=== PATIENT | male | born 1970 | race Caucasian/White ===

== ENCOUNTER 2018-08-13 18:23 | Inpatient (IN) | payer OTHER ==
[~2018-08-13] VITALS: Ht 185.4 cm; Wt 89.4 kg
[2018-08-13] MEDS ORDERED: ONDANSETRON PF 4 MG/2 ML VIAL. ONE (18:45)
[2018-08-13] MEDS ORDERED: IV RINGERS SOLUTION,LACTATED 1,000 ML IV SCH (18:49)
--- NOTE | 2018-08-13 18:54 | ED.ADGEN ---
Past History Past Medical History: Anxiety Past Surgical History: No Surgical History Alcohol Use: None Drug Use: None Adult General Chief Complaint Chief Complaint " I just not feeling well... I am under a lot of stress... 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 Pt. diaphoretic and nauseated. Pt. patient denies any trauma. Has had recent travel. Currently under increased job stressors. Patient denies prior history of cardiac disorders. However it does start in his family at age 50. Patient denies any specific ill exposures and has not been overseas recently. Patient up-to-date with vaccinations. Normally follows at [facility]. No history of cardiac disorders. Review of Systems Review of Systems Constitutional: Denies fever or chills [] Eyes: Denies change in visual acuity, redness, or eye pain [] HENT: Denies nasal congestion or sore throat [] Respiratory: Denies cough or shortness of breath [] Cardiovascular: No additional information not addressed in HPI [] GI: Denies abdominal pain, nausea, vomiting, bloody stools or diarrhea [] : Denies dysuria or hematuria [] Musculoskeletal: Denies back pain or joint pain [] Integument: Denies rash or skin lesions [] Neurologic: Denies headache, focal weakness or sensory changes [] Endocrine: Denies polyuria or polydipsia [] All other systems were reviewed and found to be within normal limits, except as documented in this note. Family History Family History Cardiac disorders started in range of 50 yrs. Current Medications Current Medications Current Medications Medications (Trade) Dose Ordered Sig/[facility] Start Time Stop Time Status Last Admin Dose Admin Aspirin (Children'S Aspirin) 324 mg 1X ONCE 08/13/18 19:00 08/13/18 19:01 DC 08/13/18 19:18 324 MG Enoxaparin Sodium (Lovenox 100mg Syringe) 90 mg 1X ONCE 08/13/18 20:00 08/13/18 20:03 DC 08/13/18 20:32 90 MG Iohexol (Omnipaque 300 Mg/ml) 75 ml 1X ONCE 08/13/18 20:15 08/13/18 20:16 DC 08/13/18 20:10 75 ML Lactated Ringer's 1,000 ml @ 1,000 mls/hr Q1H 08/13/18 18:49 08/13/18 19:48 DC 08/13/18 19:18 1,000 MLS/HR Lorazepam (Ativan) 1 mg 1X ONCE 08/13/18 19:00 08/13/18 19:01 DC 08/13/18 19:18 1 MG Magnesium Hydroxide (Milk Of Magnesia) 2,400 mg 1X ONCE 08/13/18 19:45 08/13/18 19:46 DC 08/13/18 20:32 2,400 MG Ondansetron HCl (Zofran) 8 mg 1X ONCE 08/13/18 19:15 08/13/18 19:16 DC 08/13/18 19:17 8 MG Potassium Chloride (KCl Oral Soln) 40 meq 1X ONCE 08/13/18 19:45 08/13/18 19:46 DC 08/13/18 20:31 40 MEQ See nursing for home meds Allergies Allergies Allergies Coded Allergies Type Severity Reaction Last Updated Verified No Known Drug Allergies 08/13/18 No Physical Exam Physical Exam Constitutional: Well developed, well nourished, in acute distress, non-toxic appearance. [] HENT: Normocephalic, atraumatic, bilateral external ears normal, oropharynx moist, no oral exudates, nose normal. [] Eyes: PERRLA, EOMI, conjunctiva normal, no discharge. [] Neck: Normal range of motion, no tenderness, supple, no stridor. [] Cardiovascular: Bradycardia Heart rate, regular rhythm, no murmur [] Lungs & Thorax: Bilateral breath sounds equal apex on auscultation [] Abdomen: Bowel sounds normal, soft, no tenderness, no masses, no pulsatile masses. [] Skin: Warm, very diaphoretic, no erythema, no rash. [] Back: No tenderness, no CVA tenderness. [] Extremities: No tenderness, no cyanosis, no clubbing, ROM intact, no edema. [No cording noted Neurologic: Alert and oriented X 3, normal motor function, normal sensory function, no focal deficits noted. [] Psychologic: Affect anxious, judgement normal, mood normal. [] Current Patient Data Vital Signs Vital Signs Date Time Temp Pulse Resp B/P (MAP) Pulse Ox O2 Delivery O2 Flow Rate FiO2 10/29/18 21:49 48 16 134/87 (103) 98 Room Air 08/13/18 18:37 98.5 Lab Results Laboratory Tests Test 08/13/18 18:36 08/13/18 20:39 White Blood Count 10.1 x10^3/uL (4.0-11.0) Red Blood Count 5.49 x10^6/uL (4.30-5.70) Hemoglobin 16.1 g/dL (13.0-17.5) Hematocrit 46.5 % (39.0-53.0) Mean Corpuscular Volume 85 fL (79-100) Mean Corpuscular Hemoglobin 29 pg (25-35) Mean Corpuscular Hemoglobin Concent 35 g/dL (31-37) Red Cell Distribution Width 13.9 % (11.5-14.5) Platelet Count 231 x10^3/uL (140-400) Neutrophils (%) (Auto) 41 % (31-73) Lymphocytes (%) (Auto) 48 % (24-48) Monocytes (%) (Auto) 8 % (0-9) Eosinophils (%) (Auto) 2 % (0-3) Basophils (%) (Auto) 1 % (0-3) Neutrophils # (Auto) 4.1 x10^3uL (1.8-7.7) Lymphocytes # (Auto) 4.8 x10^3/uL (1.0-4.8) Monocytes # (Auto) 0.8 x10^3/uL (0.0-1.1) Eosinophils # (Auto) 0.2 x10^3/uL (0.0-0.7) Basophils # (Auto) 0.1 x10^3/uL (0.0-0.2) Prothrombin Time 9.8 SEC (9.4-11.4) Prothrombin Time INR 1.0 (0.9-1.1) PTT 21 SEC (23-33) L D-Dimer (Martha) 0.61 mg/L (0.00-0.50) H Sodium Level 141 mmol/L (136-145) Potassium Level 3.0 mmol/L (3.5-5.1) L Chloride Level 101 mmol/L (98-107) Carbon Dioxide Level 26 mmol/L (21-32) Anion Gap 14 (6-14) Blood Urea Nitrogen 16 mg/dL (8-26) Creatinine 1.4 mg/dL (0.7-1.3) H Estimated GFR (Cockcroft-Gault) 53.9 Glucose Level 107 mg/dL (70-99) H Calcium Level 9.0 mg/dL (8.5-10.1) Magnesium Level 2.0 mg/dL (1.8-2.4) Total Bilirubin 0.5 mg/dL (0.2-1.0) Direct Bilirubin 0.1 mg/dL (0.0-0.2) Aspartate Amino Transferase (AST) 42 U/L (15-37) H Alanine Aminotransferase (ALT) 74 U/L (16-63) H Alkaline Phosphatase 109 U/L (46-116) Creatine Kinase 403 U/L (39-308) H Troponin I Quantitative < 0.017 ng/mL (0-0.055) FK-Yti-B-Type Natriuretic Peptide 43 pg/mL (0-124) Total Protein 7.7 g/dL (6.4-8.2) Albumin 4.4 g/dL (3.4-5.0) Lipase 173 U/L (73-393) Urine Collection Type Unknown Urine Color Yellow Urine Clarity Clear Urine pH 6.5 Urine Specific [place] 1.015 Urine Protein Neg (NEG-TRACE) Urine Glucose (UA) Neg mg/dL (NEG) Urine Ketones (Stick) Neg mg/dL (NEG) Urine Blood Neg (NEG) Urine Nitrite Neg (NEG) Urine Bilirubin Neg (NEG) Urine Urobilinogen Dipstick 0.2 mg/dL (0.2 mg/dL) Urine Leukocyte Esterase Neg (NEG) Urine RBC 0 /HPF (0-2) Urine WBC 0 /HPF (0-4) Urine Squamous Epithelial Cells Occ /LPF Urine Bacteria 0 /HPF (0-FEW) Urine Opiates Screen Neg (NEG) Urine Methadone Screen Neg (NEG) Urine Barbiturates Neg (NEG) Urine Phencyclidine Screen Neg (NEG) Urine Amphetamine/Methamphetamine Neg (NEG) Urine Benzodiazepines Screen Neg (NEG) Urine Cocaine Screen Neg (NEG) Urine Cannabinoids Screen Neg (NEG) Urine Ethyl Alcohol Neg (NEG) EKG EKG My interpretation EKG shows a sinus at a rate of 66. No findings acute STEMI of contralateral changes.[] Radiology/Procedures Radiology/Procedures I interpretation chest x-ray shows no acute cardiopulmonary findings. CT of chest shows no obvious pulmonary embolism or acute pulmonary changes. See formal report when available.[] Course & Med Decision Making Course & Med Decision Making Pertinent Labs and Imaging studies reviewed. (See chart for details) Discussed options of treatment with patient. Has elected to stay for further observation and serial enzymes. Will admit to Dr. Garner with cardiology consult. [] Final Impression Final Impression 1. Chest pain 2. Near-syncope 3. Hypokalemia. 3.0 4. Elevated creatinine 1.4 5. Mild elevation in d-dimer= 0.61 6. Elevated AST/ALT 42/74 Dragon Disclaimer Dragon Disclaimer This electronic medical record was generated, in whole or in part, using a voice recognition dictation system. CHARLEE SWANSON MD Aug 13, 2018 18:54
[2018-08-13] MEDS ORDERED: ASPIRIN 81 MG TAB.CHEW PO ONE (19:00)
[2018-08-13] MEDS ORDERED: LORazepam 1 MG TABLET PO ONE (19:00)
[2018-08-13 19:05] LABS: BASO # 0.1 x10^3/uL (0.0-0.2); BASO % 1 % (0-3); EOS # 0.2 x10^3/uL (0.0-0.7); EOS % 2 % (0-3); HEMATOCRIT 46.5 % (39.0-53.0); HEMOGLOBIN 16.1 g/dL (13.0-17.5); LYMPH # 4.8 x10^3/uL (1.0-4.8); LYMPH % 48 % (24-48); MEAN CORPUSCULAR HEMOGLOBIN 29 pg (25-35); MEAN CORPUSCULAR HGB CONC 35 g/dL (31-37); MEAN CORPUSCULAR VOLUME 85 fL (79-100); MONO # 0.8 x10^3/uL (0.0-1.1); MONO % 8 % (0-9); NEUT # 4.1 x10^3uL (1.8-7.7); NEUT % 41 % (31-73); PLATELET COUNT 231 x10^3/uL (140-400); RED BLOOD COUNT 5.49 x10^6/uL (4.30-5.70); RED CELL DISTRIBUTION WIDTH 13.9 % (11.5-14.5); WHITE BLOOD COUNT 10.1 x10^3/uL (4.0-11.0)
[2018-08-13] MEDS ORDERED: ONDANSETRON PF 4 MG/2 ML VIAL. IV ONE (19:15)
[2018-08-13 19:20] LABS: ALBUMIN 4.4 g/dL (3.4-5.0); CREATININE 1.4 mg/dL (0.7-1.3); DIRECT BILIRUBIN 0.1 mg/dL (0.0-0.2); GFR 53.9; TOTAL BILIRUBIN 0.5 mg/dL (0.2-1.0); TOTAL PROTEIN 7.7 g/dL (6.4-8.2)
[2018-08-13] MEDS ORDERED: POTASSIUM CHLORIDE 20 MEQ/15 ML ORAL LIQUID. PO ONE (19:45)
[2018-08-13] MEDS ORDERED: MAGNESIUM HYDROXIDE 2,400 MG/30 ML ORAL.SUSP. PO ONE (19:45)
[2018-08-13] MEDS ORDERED: ENOXAPARIN ** NOTE DOSE ** SYRINGE SQ ONE (20:00)
[2018-08-13] MEDS ORDERED: IOHEXOL 300 MG/ML 75 ML VIAL. IV ONE (20:15)
--- NOTE | 2018-08-13 20:43 | RAD ---
Examination: CT ANGIOGRAPHY CHEST History: Omni 300 60cc: PE protocol: Chest pain, dizziness, chills, elevated d-dimer Comparison/Correlation: None Findings: Axial images of the chest were obtained following 60 cc Omnipaque 300 IV. Sagittal and coronal reformatted images were provided. Pulmonary arterial vasculature is normal with no thromboembolic disease. No enlarged thoracic lymph nodes. No pleural or pericardial effusion. No infiltrate. No suspicious pulmonary nodule or mass. Few nonspecific low-attenuation lesions involving the lung garcia noted. Partially visualized upper abdomen is unremarkable. Thoracic aorta is not opacified for arteriographic assessment on this exam. Morphology is grossly unremarkable. Impression: No pulmonary arterial thromboembolic disease. Electronically signed by: Ke Leonardo MD (08/13/2018 8:40 PM) [facility]
[2018-08-13 21:00] LABS: BACTERIA,URINE 0 /HPF (0-FEW); BILIRUBIN,URINE NEG (NEG); CLARITY,URINE CLEAR; COLOR,URINE YELLOW; GLUCOSE,URINE NEG (NEG); NITRITE,URINE NEG (NEG); RBC,URINE 0 /HPF (0-2); SQUAMOUS EPITHELIAL CELL,UR OCC /LPF; UROBILINOGEN,URINE 0.2 mg/dL (0.2 mg/dL); WBC,URINE 0 /HPF (0-4)
[2018-08-13 21:11] LABS: BARBITURATES NEG (NEG); BENZODIAZEPINES NEG (NEG); CANNABINOIDS NEG (NEG); COCAINE NEG (NEG); METHADONE NEG (NEG); OPIATES NEG (NEG); PHENCYCLIDINE NEG (NEG)
[2018-08-13 21:14] LABS: AMPHETAMINE/METHAMPHETAMINE NEG (NEG)
[2018-08-13] MEDS ORDERED: ONDANSETRON PF 4 MG/2 ML VIAL. IV PRN (22:15)
[2018-08-13] MEDS: IV RINGERS SOLUTION,LACTATED 1,000 ML IV SCH (22:30)
--- NOTE | 2018-08-13 23:35 | RAD ---
Examination: CHEST PA LATERAL History: Chest pain, dizziness Comparison/Correlation: None Findings: PA and lateral views of the chest were obtained. Heart size and pulmonary vasculature are normal. No infiltrate or pleural effusion. No pneumothorax. Bony structures are unremarkable for the patient's age. Impression: No active disease. Electronically signed by: Ke Leonardo MD (08/13/2018 11:32 PM) [facility]
[2018-08-13 23:42] VITALS: BP 117/78
[2018-08-14 03:00] VITALS: BP 127/73
[2018-08-14] MEDS: IV RINGERS SOLUTION,LACTATED 1,000 ML IV SCH ×2 (04:30→10:45)
[2018-08-14 06:19] LABS: BASO # 0.1 x10^3/uL (0.0-0.2); BASO % 1 % (0-3); EOS # 0.1 x10^3/uL (0.0-0.7); EOS % 1 % (0-3); HEMATOCRIT 42.4 % (39.0-53.0); HEMOGLOBIN 14.6 g/dL (13.0-17.5); LYMPH # 2.1 x10^3/uL (1.0-4.8); LYMPH % 31 % (24-48); MEAN CORPUSCULAR HEMOGLOBIN 29 pg (25-35); MEAN CORPUSCULAR HGB CONC 34 g/dL (31-37); MEAN CORPUSCULAR VOLUME 85 fL (79-100); MONO # 0.6 x10^3/uL (0.0-1.1); MONO % 8 % (0-9); NEUT % 59 % (31-73); PLATELET COUNT 190 x10^3/uL (140-400); RED BLOOD COUNT 4.98 x10^6/uL (4.30-5.70); RED CELL DISTRIBUTION WIDTH 13.9 % (11.5-14.5); WHITE BLOOD COUNT 6.8 x10^3/uL (4.0-11.0)
[2018-08-14 06:31] LABS: CALCIUM 8.8 mg/dL (8.5-10.1); CREATININE 1.3 mg/dL (0.7-1.3); GFR 58.7; POTASSIUM 3.9 mmol/L (3.5-5.1)
--- NOTE | 2018-08-14 08:35 | PDOC2 ---
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 He reports he had just gotten home and was standing talking with about upcoming TDY. He says it had been about 15 minutes since he walked in the door and he had sudden onset of diaphoresis and lightheaded. He states he went down to floor but no loss of consciousness. He then developed nausea vomiting. He reports symptoms that continued about 30 min and became worse every time tried to stand so he came to the ED. He was noted to be mildly dehydrated and fluids were given. He reports prior lightheadedness on standing occasionally but only to a minimal degree. He denies chest discomfort, palpitations, prior syncope. He denies recent illness , fever or chills. He denies change in diet or fluid intake but does state that he thinks he is dehydrated off and on. He denies cardiac symptoms except as above, denies congestive symptoms. He regularly does PT for the and runs 3 miles several times weekly without issues. He does report that he has been having chronic fatigue and memory issues, or difficulty concentrating recently and had labs by his PCP, as well as a sleep study that was reportedly normal. Past Medical History He suffers from anxiety for which he takes Lexapro, otherwise he has no significant medical history Past Surgical History No pertinent history Family History Father and all uncles with history of premature coronary disease and MIs. Social History non smoker, no significant ETOH, no illicit drugs. Active duty [employer]. Due to TDY tomorrow to [facility]. Current Medications Current Medications Ondansetron HCl (Zofran) 4 mg STK-MED ONCE .ROUTE ; Start 08/13/18 at 18:45; Stop 08/13/18 at 18:46; Status DC Aspirin (Children'S Aspirin) 324 mg 1X ONCE PO Last administered on at 19:18; Start 08/13/18 at 19:00; Stop 08/13/18 at 19:01; Status DC Lactated Ringer's 1,000 ml @ 1,000 mls/hr Q1H IV Last administered on at 19:18; Start 08/13/18 at 18:49; Stop 08/13/18 at 19:48; Status DC Lorazepam (Ativan) 1 mg 1X ONCE PO Last administered on 08/13/18at 19:18; Start 08/13/18 at 19:00; Stop 08/13/18 at 19:01; Status DC Ondansetron HCl (Zofran) 8 mg 1X ONCE IV Last administered on 08/13/18at 19:17 ; Start 08/13/18 at 19:15; Stop 08/13/18 at 19:16; Status DC Potassium Chloride (KCl Oral Soln) 40 meq 1X ONCE PO Last administered on at 20:31; Start 08/13/18 at 19:45; Stop 08/13/18 at 19:46; Status DC Magnesium Hydroxide (Milk Of Magnesia) 2,400 mg 1X ONCE PO Last administered on 08/13/18at 20:32; Start 08/13/18 at 19:45; Stop 08/13/18 at 19:46; Status DC Enoxaparin Sodium (Lovenox 100mg Syringe) 90 mg 1X ONCE SQ Last administered on 08/13/18at 20:32; Start 08/13/18 at 20:00; Stop 08/13/18 at 20:03; Status DC Iohexol (Omnipaque 300 Mg/ml) 75 ml 1X ONCE IV Last administered on at 20:10; Start 08/13/18 at 20:15; Stop 08/13/18 at 20:16; Status DC Ondansetron HCl (Zofran) 4 mg PRN Q4HRS PRN IV NAUSEA/VOMITING; Start at 22:15; Stop 08/14/18 at 22:14 Enoxaparin Sodium (Lovenox 100mg Syringe) 90 mg BID SQ ; Start 08/14/18 at 09: 00 Aspirin (Children'S Aspirin) 81 mg DAILY PO ; Start 08/14/18 at 09:00 Lactated Ringer's 1,000 ml @ 160 mls/hr Q6H15M IV Last administered on at 22:30; Start 08/13/18 at 22:15 Potassium Chloride (KCl Oral Soln) 40 meq DAILY PO ; Start 08/14/18 at 09:00 Allergies: Coded Allergies: No Known Drug Allergies (Unverified , 08/13/18) Review of System as scheduled General: Alert, Oriented X3, Cooperative, No acute distress HEENT: Atraumatic, EOMI, Mucous membr. moist/pink, Other (no carotid bruits, JVD or HJR) Lungs: Clear to auscultation, Normal air movement Heart: Regular rate, Normal S1, Normal S2, No murmurs, Other (no gallops, clicks or rubs) Abdomen: Normal bowel sounds, Soft, No tenderness Extremities: No clubbing, No cyanosis, No edema, Normal pulses Neuro: Normal speech, Strength at 5/5 X4 ext, Cranial nerves 3-12 NL Psych/Mental Status: Mental status NL, Mood NL VITALS Vital Signs Date Time Temp Pulse Resp B/P (MAP) Pulse Ox O2 Delivery O2 Flow Rate FiO2 08/14/18 03:00 98.1 51 16 127/73 (91) 95 08/13/18 23:42 Room Air Labs Laboratory Tests Test 08/13/18 18:36 08/13/18 20:39 08/14/18 05:42 White Blood Count 10.1 x10^3/uL (4.0-11.0) 6.8 x10^3/uL (4.0-11.0) Red Blood Count 5.49 x10^6/uL (4.30-5.70) 4.98 x10^6/uL (4.30-5.70) Hemoglobin 16.1 g/dL (13.0-17.5) 14.6 g/dL (13.0-17.5) Hematocrit 46.5 % (39.0-53.0) 42.4 % (39.0-53.0) Mean Corpuscular Volume 85 fL (79-100) 85 fL (79-100) Mean Corpuscular Hemoglobin 29 pg (25-35) 29 pg (25-35) Mean Corpuscular Hemoglobin Concent 35 g/dL (31-37) 34 g/dL (31-37) Red Cell Distribution Width 13.9 % (11.5-14.5) 13.9 % (11.5-14.5) Platelet Count 231 x10^3/uL (140-400) 190 x10^3/uL (140-400) Neutrophils (%) (Auto) 41 % (31-73) 59 % (31-73) Lymphocytes (%) (Auto) 48 % (24-48) 31 % (24-48) Monocytes (%) (Auto) 8 % (0-9) 8 % (0-9) Eosinophils (%) (Auto) 2 % (0-3) 1 % (0-3) Basophils (%) (Auto) 1 % (0-3) 1 % (0-3) Neutrophils # (Auto) 4.1 x10^3uL (1.8-7.7) 4.0 x10^3uL (1.8-7.7) Lymphocytes # (Auto) 4.8 x10^3/uL (1.0-4.8) 2.1 x10^3/uL (1.0-4.8) Monocytes # (Auto) 0.8 x10^3/uL (0.0-1.1) 0.6 x10^3/uL (0.0-1.1) Eosinophils # (Auto) 0.2 x10^3/uL (0.0-0.7) 0.1 x10^3/uL (0.0-0.7) Basophils # (Auto) 0.1 x10^3/uL (0.0-0.2) 0.1 x10^3/uL (0.0-0.2) Prothrombin Time 9.8 SEC (9.4-11.4) Prothromb Time International Ratio 1.0 (0.9-1.1) Activated Partial Thromboplast Time 21 SEC (23-33) D-Dimer (Martha) 0.61 mg/L (0.00-0.50) Sodium Level 141 mmol/L (136-145) 140 mmol/L (136-145) Potassium Level 3.0 mmol/L (3.5-5.1) 3.9 mmol/L (3.5-5.1) Chloride Level 101 mmol/L (98-107) 103 mmol/L (98-107) Carbon Dioxide Level 26 mmol/L (21-32) 29 mmol/L (21-32) Anion Gap 14 (6-14) 8 (6-14) Blood Urea Nitrogen 16 mg/dL (8-26) 13 mg/dL (8-26) Creatinine 1.4 mg/dL (0.7-1.3) 1.3 mg/dL (0.7-1.3) Estimated GFR (Cockcroft-Gault) 53.9 58.7 Glucose Level 107 mg/dL (70-99) 91 mg/dL (70-99) Calcium Level 9.0 mg/dL (8.5-10.1) 8.8 mg/dL (8.5-10.1) Magnesium Level 2.0 mg/dL (1.8-2.4) Total Bilirubin 0.5 mg/dL (0.2-1.0) Direct Bilirubin 0.1 mg/dL (0.0-0.2) Aspartate Amino Transf (AST/SGOT) 42 U/L (15-37) Alanine Aminotransferase (ALT/SGPT) 74 U/L (16-63) Alkaline Phosphatase 109 U/L (46-116) Creatine Kinase 403 U/L (39-308) Troponin I Quantitative < 0.017 ng/mL (0-0.055) WG-Tvs-G-Type Natriuretic Peptide 43 pg/mL (0-124) Total Protein 7.7 g/dL (6.4-8.2) Albumin 4.4 g/dL (3.4-5.0) Lipase 173 U/L (73-393) Urine Collection Type Unknown Urine Color Yellow Urine Clarity Clear Urine pH 6.5 Urine Specific [place] 1.015 Urine Protein Neg (NEG-TRACE) Urine Glucose (UA) Neg mg/dL (NEG) Urine Ketones (Stick) Neg mg/dL (NEG) Urine Blood Neg (NEG) Urine Nitrite Neg (NEG) Urine Bilirubin Neg (NEG) Urine Urobilinogen Dipstick 0.2 mg/dL (0.2 mg/dL) Urine Leukocyte Esterase Neg (NEG) Urine RBC 0 /HPF (0-2) Urine WBC 0 /HPF (0-4) Urine Squamous Epithelial Cells Occ /LPF Urine Bacteria 0 /HPF (0-FEW) Urine Opiates Screen Neg (NEG) Urine Methadone Screen Neg (NEG) Urine Barbiturates Neg (NEG) Urine Phencyclidine Screen Neg (NEG) Urine Amphetamine/Methamphetamine Neg (NEG) Urine Benzodiazepines Screen Neg (NEG) Urine Cocaine Screen Neg (NEG) Urine Cannabinoids Screen Neg (NEG) Urine Ethyl Alcohol Neg (NEG) Images EKG - sinus becca without acute abn CXR - no acute abn CTA - no PE Assessment/Plan 1. near syncope 2. fatigue 3. hypokalemia 4. acute renal insufficiency secondary to mild dehydration 5. mild hepatic insufficiency Suspect near syncope secondary to orthostatic hypotension and mild dehydration, however with additional complaints of recent chronic fatigue, active duty status and family history of premature coronary artery disease we will check echo for LV function and structure. Suggest outpatient event monitoring and stress testing if echo ok. CRI is resolved after fluids. Request recent labs ( lipids, thyroid, vitamin d ect) from PCP. ADELFO DIEGO MD 08/14/18 2306: CONSULT Assessment/Plan Pt. seen and examined. Agree with above SALES ORDER COORDINATOR note with following comments: Vasovagal syncope. Normal exam, EKG/echo. No further testing needed. ok to DC from CV standpoint. pls call with questions. COLBY SALDIVAR APRN Aug 14, 2018 08:35 ADELFO DIEGO MD Aug 14, 2018 23:06
[2018-08-14] MEDS ORDERED: ASPIRIN 81 MG TAB.CHEW PO SCH (09:00)
[2018-08-14] MEDS ORDERED: POTASSIUM CHLORIDE 20 MEQ/15 ML ORAL LIQUID. PO SCH (09:00)
[2018-08-14] MEDS ORDERED: ENOXAPARIN ** NOTE DOSE ** SYRINGE SQ SCH (09:00)
--- NOTE | 2018-08-14 09:46 | RAD ---
Bilateral lower extremity venous duplex study 08/14/2018 7:25 AM Clinical History: Chest pain. Bilateral lower extremity cramping. Comparison: None available Technique: Using a combination of real time ultrasound imaging and color-flow and pulse Doppler imaging techniques along with graded compression and augmentation, duplex evaluation of the deep venous system of the both lower extremities was performed. Multiple images were obtained. Findings: There is no sonographic evidence of deep venous thrombosis involving the visualized deep venous structures of either lower extremity. Impression: No evidence of deep venous thrombosis involving either lower extremity Electronically signed by: Mitchel Ma MD (08/14/2018 9:42 AM) [id number]
[2018-08-14 11:24] VITALS: BP 110/67
[2018-08-14 14:23] LABS: THYROID STIM HORMONE (TSH) 1.615 uIU/mL (0.358-3.740)
--- NOTE | 2018-08-14 15:03 | CARD ---
MR#: [id number] Date of Study: 08/14/2018 Ordering Physician: COLBY SALDIVAR, Referring Physician: BRAN ZEE Tech: Ambreen Edwards WILLIE APPROVED REPORT EXAM: Two-dimensional and M-mode echocardiogram with Doppler and color Doppler. Other Information Quality : GoodHR: 50bpm Rhythm : Bradycardia INDICATION Chest Pain 2D DIMENSIONS RVDd2.7 (2.9-3.5cm)Left Atrium(2D)3.1 (1.6-4.0cm) IVSd0.9 (0.7-1.1cm)Aortic Root(2D)2.8 (2.0-3.7cm) LVDd5.0 (3.9-5.9cm)LVOT Diameter2.0 (1.8-2.4cm) PWd0.9 (0.7-1.1cm)LVDs2.6 (2.5-4.0cm) FS (%) 42.0 %LVEF(%)73.0 (>50%) Aortic Valve AoV Peak [place].1.5cm/sAoV VTI32.0cm AO Peak GR.9.0mmHgLVOT Peak [place].1.2cm/s LVOT VTI 28.00cmAO Mean GR.6mmHg YASMIN (VMAX)2.14vr3LGU (VTI)2.60cm2 Mitral Valve MV E Velocity1.1cm/sMV E Peak Gr.5mmHg MV DECEL [id number] A Velocity0.6cm/s MV E Mean Gr.13mmHgE/A Ratio1.8 MV A [id number] TDI Lateral E' P. V19.00cm/sMedial E' P. V16.00cm/s E/Lateral E'0.1E/Medial E'0.1 Pulmonary Valve PV Peak Velocity1.4cm/sPV Peak Grad.8mmHg Tricuspid Valve TR P. [id number]/sRAP [id number] TR Peak Gr.[id number] LEFT VENTRICLE The left ventricle is normal size. There is normal left ventricular wall thickness. The left ventricu lar systolic function is normal and the ejection fraction is within normal range. The Ejection Fracti on is 60-65%. There is normal LV segmental wall motion. The left ventricular diastolic function and f illing is normal for age. RIGHT VENTRICLE The right ventricle is normal size. There is normal right ventricular wall thickness. The right ventr icular systolic function is normal. ATRIA The left atrium size is normal. The right atrium size is normal. The interatrial septum is intact wit h no evidence for an atrial septal defect or patent foramen ovale as noted on 2-D or Doppler imaging. AORTIC VALVE The aortic valve is normal in structure and function. The aortic valve is trileaflet. Doppler and Col or Flow revealed no significant aortic regurgitation. There is no significant aortic valvular stenosi s. MITRAL VALVE The mitral valve is normal in structure and function. There is no evidence of mitral valve prolapse. There is no mitral valve stenosis. Doppler and Color Flow revealed no mitral valve regurgitation note d. TRICUSPID VALVE The tricuspid valve is normal in structure and function. Doppler and Color Flow revealed trace tricus pid regurgitation. The PA pressure was estimated at 29 mmHg. There is no tricuspid valve prolapse or vegetation. There is no tricuspid valve stenosis. PULMONIC VALVE Not well visualized. Doppler and Color Flow revealed no pulmonic valvular regurgitation. There is no pulmonic valvular stenosis. GREAT VESSELS The aortic root is normal in size. The ascending aorta is normal in size. The IVC is normal in size a nd collapses >50% with inspiration. PERICARDIAL EFFUSION There is no evidence of significant pericardial effusion. Critical Notification Critical Value: No <Conclusion> The left ventricular systolic function is normal and the ejection fraction is within normal range. Th e Ejection Fraction is 60-65%. There is normal LV segmental wall motion. Signed by : Edmundo Miranda, Electronically Approved : 08/14/2018 15:03:00
--- NOTE | 2018-08-14 15:05 | EKG ---
[address] [address] Test Date: 2018-08-13 Test Time: 18:27:03 Pat Name: LA MARTINEZ Department: Room: 121 A Gender: M Data Warehousing Specialist: : [id number] Requested By: CHARLEE SWANSON Order Number: [id number] Reading MD: Edmundo Miranda MD Measurements Intervals [place] Rate: 66 P: 37 SC: 140 QRS: 36 QRSD: 96 T: 31 QT: 418 QTc: 440 Interpretive Statements SINUS RHYTHM Electronically Signed On 08-16-2018 11:50:59 CDT by Edmundo Miranda MD
--- NOTE | 2018-08-14 19:04 | HP ---
ADMIT DATE: 08/13/2018 HISTORY OF PRESENT ILLNESS: The patient is a 48-year-old male patient, who came to the Emergency Room with a complaint of being lightheaded, diaphoretic down to the floor, then nausea and vomiting continued about 30 minutes and worse every time he tried to stand. He has history of lightheadedness on standing, but no illness, fever or chills. No cardiac symptoms except as above. He runs 3 miles several times a week. Did complain of chronic fatigue and memory issues, recently had labs as well as sleep study that was reportedly normal. However, his past medical history is significant only for anxiety. Past surgical history is left inguinal hernia repair. He was investigated extensively in the Emergency Room and admitted with near syncope, fatigue, he was found to be hypokalemic, and has acute kidney injury with a BUN of 16, creatinine 1.4, and also mild hepatic insufficiency. He was admitted and his first set of cardiac enzymes was normal. He was admitted for further evaluation and to consult the cardiology team. PAST MEDICAL HISTORY: Significant for anxiety disorder. PAST SURGICAL HISTORY: Significant for left inguinal hernia repair. ALLERGIES: He has no known drug allergies. MEDICATIONS: He is currently on Lexapro. He is on Lexapro 10 mg once a day. FAMILY HISTORY: Significant for one younger brother who is healthy. Father at age of 78 and mother at age of 62 because of COPD and complication of surgery. SOCIAL HISTORY: He is , has 3 children. He never smoked, drinks alcohol occasionally. Does not use any drugs. He is retiring from the [employer]. REVIEW OF SYSTEMS: As per history of present illness. PHYSICAL EXAMINATION: GENERAL: On examining him, he looked well. On arrival to the Emergency Room, pale, but o jaundice, cyanosis, or thyromegaly. No jugular venous distension. No limb edema. VITAL SIGNS: His heart rate was 54, blood pressure was 146/89, temperature was 98.5, respiratory rate was 16, and oxygen saturation was 100% on room air. HEAD, EYES, EARS, NOSE AND THROAT: Showed normocephalic, atraumatic. NECK: Supple. HEART: Showed normal first and second heart sounds with no gallop, rub or murmur. CHEST: Clear to auscultation. No crepitation or rhonchi. ABDOMEN: Distended, soft, nontender. No guarding or rigidity. No organomegaly. All hernial orifices intact. Bowel sounds normal. NEUROLOGIC: He was awake, alert, responding appropriately. Cranial nerves are intact. EXTREMITIES: He moves extremities without difficulty. He ambulates without difficulty. LABORATORY DATA: While in the Emergency Room, his lab work showed a serum sodium 141, potassium 3, chloride 101, bicarbonate 26, anion gap of 14, BUN 16, creatinine 1.4, estimated GFR was 54 mL per minute. His glucose was 107, calcium was 9. Magnesium was 2. Total bilirubin, AST, ALT, alkaline phosphatase are slightly elevated. CK was 403. First set of cardiac enzymes to be less than 0.017. Total protein was 7.7, albumin was 4.4. Prothrombin time was 9.8, INR of 1, aPTT was 27. D-dimer was high at 0.61. Urinalysis was essentially unremarkable and urine toxicology screen was negative. He has had a chest x-ray, which was basically unremarkable. The heart size and pulmonary vasculature are normal. No infiltrate or pleural effusion, no pneumothorax. Bony structures unremarkable for the patient's age. CT angio of the chest showed that pulmonary vasculature is normal with no thromboembolic disease. No enlarged thoracic lymph nodes. No pleural pericardial effusion. No infiltrate, no suspicious pulmonary nodules or masses, few are nonspecific. Low attenuation lesion involving the lung garcia noted, partially visualized upper abdomen is unremarkable. Thoracic aorta is not opacified for arteriographic assessment on this exam. Morphology is grossly unremarkable. ASSESSMENT AND PLAN: The patient will be admitted. We will do a bilateral lower extremity Doppler ultrasound. We will consult the Cardiology team and decide on further management accordingly. BRAN ZEE MD DR: LUIS CARLOS/josie JOB#: [id number] / [id number]
--- NOTE | 2018-08-14 23:31 | DS ---
DATE OF DISCHARGE: 08/14/2018 HOSPITAL COURSE: The patient is a 48-year-old male patient who came in with complaints of syncope, lightheadedness, diaphoresis, nausea and vomiting. He has had no cardiac symptoms except as above. He runs 3 miles several times a week. He did complain of chronic fatigue. He was extensively investigated in the Emergency Room and was found to have hypokalemia as well as impaired liver enzymes and acute kidney injury. His cardiac enzymes were less than 0.017. We did replenish his potassium and his potassium is up to 3.9. His kidney function improved. BUN is now 13, creatinine 1.3. He has no postural hypertension. An echocardiogram done, which showed normal left ventricular systolic function. He was evaluated by the Cardiology team and they recommended that the patient can be discharged home safely and to follow with the office as an outpatient for event monitor, if necessary and if the patient has recurrence of his symptoms, the most likely explanation is anxiety. PHYSICAL EXAMINATION: GENERAL: When I saw him this afternoon, he looked well and was clearly in no apparent respiratory distress. No pallor, jaundice, cyanosis, or thyromegaly. No jugular venous distension. No lower limb edema. VITAL SIGNS: His heart rate was 51, blood pressure was 110/67, temperature was 98.5, respiratory rate 20, and oxygen saturation was 95% on room air. HEENT: Examination of the head, eyes, ears, nose and throat showed normocephalic, atraumatic. NECK: Supple. HEART: Showed normal first and second sounds. No gallop, rub or murmur. CHEST: Clear to auscultation. No crepitation or rhonchi. ABDOMEN: Distended, soft, nontender. No guarding or rigidity. No organomegaly. Hernial orifices are intact and bowel sounds normal. NEUROLOGIC: He was awake, alert, responding appropriately. His cranial nerves are in intact. EXTREMITIES: He moves extremities without difficulty. He ambulates without assistance or without assistive devices. LABORATORY DATA AND IMAGING STUDIES: His lab work showed a serum sodium 140, potassium 3.9, chloride 103, bicarbonate 29, anion gap of 8, BUN 13, creatinine 1.3, estimated GFR was 59 mL per minute. His glucose was 91, calcium was 8.8. We did a venous Doppler ultrasound of both lower extremities showed no evidence of deep vein thrombosis. His echocardiogram was normal. DISCHARGE MEDICATIONS: The patient was discharged home to continue his Lexapro. FINAL DISCHARGE DIAGNOSES: Near syncope, hypokalemia, acute kidney injury that resolved, slightly impaired liver enzymes most likely explained by severe anxiety. DISCHARGE INSTRUCTION: He was discharged home to follow with Cardiology team as an outpatient. BRAN ZEE MD DR: LUIS CARLOS/josie JOB#: [id number] / [id number]
== END 2018-08-14 15:40 | disposition home or self-care (01) | DRG 684 ==
LOC: ER 18:23 → 1 SOUTH 22:02
PROVIDERS: ADMIT Internal Medicine; ATTEND Internal Medicine
DX: N17.9 Acute kidney failure, unspecified (principal); E86.0 Dehydration; E87.6 Hypokalemia; K21.9 Gastro-esophageal reflux disease without esophagitis; R53.82 Chronic fatigue, unspecified; F41.9 Anxiety disorder, unspecified; K72.90 Hepatic failure, unspecified without coma; N18.9 Chronic kidney disease, unspecified; Z82.49 Family history of ischemic heart disease and other diseases of the circulatory system; Z82.5 Family history of asthma and other chronic lower respiratory diseases
CPT/HCPCS: 36415; 71046; 71275; 80048; 80061; 80076; 80307; 81001; 82550; 83690; 83735; 83880; 84443; 84484; 85025; 85379; 85610; 85730; 93005; 93306; 93970; 96360; 96372; 96374; J1650; J2405; J7120; Q9967; 99285-25; G0479

== ENCOUNTER 2021-07-17 18:50 | Emergency (ER) | payer OTHER ==
[~2021-07-17] VITALS: Ht 175.3 cm; Wt 89.0 kg
[2021-07-17 19:03] VITALS: BP 128/70
--- NOTE | 2021-07-17 19:43 | PHYS DOC ---
Past History Past Medical History: Anxiety Past Surgical History: No Surgical History Alcohol Use: None Drug Use: None Adult General Chief Complaint Chief Complaint: KNEE INJURY HPI HPI Patient is a 51-year-old male presenting for left anterior knee pain. Onset was 2 weeks ago. He is an active healthy male who takes Cymbalta only for mental health issues. States he is actively involved in [employer] classes and often falls to his knees grappling. Denies any known mechanism of injury or inciting event, states it is probably repetitive injury of falling to the soft mat onto his knees. States he has been providing supportive care at home to himself with ice, ibuprofen, Motrin and Voltaren gel without any improvement. Reports there is development of a small effusion that he was concerned is getting larger over past 24 hours and feels hot to the touch prompting him to come in for evaluation. Denies any other concerning medical issues or exposures, no prior history of IV drug use or other concerning risk factors Review of Systems Review of Systems Fourteen body systems of review of systems have been reviewed. See HPI for pertinent positives and negative responses, other platt all other systems are negative, non-pertinent or non-contributory Allergies Allergies Allergies Coded Allergies Type Severity Reaction Last Updated Verified No Known Drug Allergies 08/13/18 No Physical Exam Physical Exam Constitutional: Well developed, well nourished, no acute distress, non-toxic appearance. HENT: Normocephalic, atraumatic, bilateral external ears normal, oropharynx moist, no oral exudates, nose normal. Eyes: PERRLA, EOMI, conjunctiva normal, no discharge. Neck: Normal range of motion, no tenderness, supple, no stridor. Cardiovascular: Heart rate regular per monitor Lungs & Thorax: No respiratory distress or accessory muscle use, bilateral chest rise Abdomen: Abdomen soft, non-tender, bowel sounds present in all quadrants, no guarding or rebound, nonacute abdomen. Skin: Warm, dry, no erythema, no rash. Back: No tenderness, no CVA tenderness. Extremities: Tenderness present to left anterior knee over side of patella that is slightly edematous, comprehensive formal exam of left knee, left hip and left ankle grossly nonconcerning specifically with negative valgus and varus strain, anterior and posterior Irais's, and patellar grind test. No cyanosis, no clubbing, range of motion of left knee fully intact with pain during flexion only Neurologic: Alert and oriented X 3, grossly normal motor & sensory function, no focal deficits noted. Psychologic: Affect normal, judgement normal, mood normal. Current Patient Data Vital Signs Vital Signs Date Time Temp Pulse Resp B/P (MAP) Pulse Ox O2 Delivery O2 Flow Rate FiO2 07/17/21 19:03 97.5 55 16 128/70 (89) 98 Room Air EKG EKG [] Radiology/Procedures Radiology/Procedures EXAMINATION: Left knee radiograph. VIEWS: 4 COMPARISON: None INDICATION:51 years, Male, left anterior knee pain, fall. FINDINGS: No acute fracture, dislocation or subluxation. Superior patellar enthesophyte. Prepatellar soft tissue swelling. Small suprapatellar joint effusion. IMPRESSION: No acute fracture or dislocation. Prepatellar soft tissue swelling. Electronically signed by: Lico Case MD (07/17/2021 8:11 PM) [facility] Heart Score C/O Chest Pain: No Risk Factors: Risk Factors: DM, Current or recent (<one month) smoker, HTN, HLP, family history of CAD, obesity. Risk Scores: Risk Factors: DM, Current or recent (<one month) smoker, HTN, HLP, family history of CAD, obesity. Course & Med Decision Making Course & Med Decision Making ABCs unremarkable HPI physical exam and comprehensive ER work-up nonconcerning for any emergent or surgical issues Discussed small effusion likely physiologic from repetitive trauma to anterior portion of knee. No indication for antibiotics or drainage or any other invasive intervention in ER setting Discharge home with close PCP follow-up and supportive care practices utilizing ice, compression and ibuprofen as needed advised. Strict return precautions discussed with good understanding prior to ER departure Dragon Disclaimer Dragon Disclaimer This electronic medical record was generated, in whole or in part, using a voice recognition dictation system. Additional Procedures Progress Bedside MSK ultrasound performed of left anterior knee. No gross abnormalities appreciated, patella intact, there is trace effusion present to anterior surface of patella without any concerning underlying abnormalities Departure Departure: Impression: Primary Impression: Left anterior knee pain Disposition: HOME / SELF CARE / HOMELESS Condition: STABLE Referrals: PCP,UNKNOWN (PCP) Additional Instructions: You were seen for left anterior knee pain. You should return to the ED if you develop worsening pain, fever, numbness, tingling, weakness, or any other new or concerning symptoms. Your pain is most likely due to repetitive trauma during jujitsu and should improve with ibuprofen, compression wraps, stretching, and activity. As discussed it is imperative you follow-up with your primary care physician to review ER visit today and need for next steps in care. There might be indication for outpatient specialist consultation to ensure symptomatic improvement. It was a pleasure to take care of you and I wish you the best going forward Scripts No Active Prescriptions or Reported Meds JOE JIMENEZ DO Jul 17, 2021 19:43
--- NOTE | 2021-07-17 20:13 | RAD ---
EXAMINATION: Left knee radiograph. VIEWS: 4 COMPARISON: None INDICATION:51 years, Male, left anterior knee pain, fall. FINDINGS: No acute fracture, dislocation or subluxation. Superior patellar enthesophyte. Prepatellar soft tiss ue swelling. Small suprapatellar joint effusion. IMPRESSION: No acute fracture or dislocation. Prepatellar soft tissue swelling. Electronically signed by: Lico Case MD (07/17/2021 8:11 PM) [facility]
== END 2021-07-17 20:35 | disposition home or self-care (01) ==
LOC: ER 18:50
DX: M25.562 Pain in left knee (principal); R60.0 Localized edema; F41.9 Anxiety disorder, unspecified
CPT/HCPCS: 73564; 99283; 99284